=== PATIENT | male | born 1985 | race Caucasian/White ===

== ENCOUNTER 2019-03-25 12:56 | Emergency (ER) | payer OTHER ==
[~2019-03-25] VITALS: Ht 172.7 cm; Wt 81.7 kg
[2019-03-25] MEDS ORDERED: ZANAFLEX4 MG PO (14:51)
[2019-03-25] MEDS ORDERED: IBUPROFEN 800800 M1 PO (14:51)
[2019-03-25 15:04] VITALS: BP 139/82
== END 2019-03-25 15:05 | disposition home or self-care (01) ==
LOC: M.ERS 12:56
DX: S06.0X0A Concussion without loss of consciousness, initial encounter (principal); S01.01XA Laceration without foreign body of scalp, initial encounter; S16.1XXA Strain of muscle, fascia and tendon at neck level, initial encounter; F17.210 Nicotine dependence, cigarettes, uncomplicated; W22.8XXA Striking against or struck by other objects, initial encounter; Y93.89 Activity, other specified; Y92.89 Other specified places as the place of occurrence of the external cause; Y99.8 Other external cause status

== ENCOUNTER 2019-04-06 15:46 | Emergency (ER) | payer OTHER ==
[~2019-04-06] VITALS: Ht 180.3 cm; Wt 81.7 kg
[~2019-04-06 15:46] MED LIST: IBUPROFEN 800800 M1 PO; ZANAFLEX4 MG PO
[2019-04-06 16:09] VITALS: BP 110/69
== END 2019-04-06 16:09 | disposition home or self-care (01) ==
LOC: M.ERS 15:46
DX: S01.01XD Laceration without foreign body of scalp, subsequent encounter (principal); X58.XXXD Exposure to other specified factors, subsequent encounter